=== PATIENT | male | born 2000 | race Caucasian/White ===

== ENCOUNTER 2024-02-02 19:48 | Emergency (ER) | payer OTHER, SELFPAY ==
[2024-02-02 19:48] VITALS: BP 108/69
[2024-02-02 19:51] VITALS: BP 152/86
--- NOTE | 2024-02-02 21:30 | ED.GENMED ---
History of Present Illness
General
Chief Complaint: Crisis Evaluation
Source: patient
Exam Limitations: none
Time Seen by Provider: 02/02/24 19:53
Nursing documentation reviewed up to this point in time: agreed with
History of Present Illness
History of Present Illness:
Patient presents to ED for medical evaluation after 302 petition was filed by community service officer, as patient was found sitting in front of neighbors lawn, holding knives. When approached by police, patient expressed thoughts of wanting to kill himself.
Patient admits to having used LSD this afternoon. At the time of evaluation ED, patient is alert and awake, and is without any complaints. Patient has very little recollection of what transpired prior to arrival in ED. Denies recent illness.
Denies use of any other illicit medications. Denies homicidal ideation. Denies previous history of similar symptoms.
Review of Systems
Review of Systems
Allergies reviewed?: Yes
All Other Systems: ROS reviewed and negative except as documented in HPI and ROS
Constitutional: Reports no symptoms
Respiratory: Reports no symptoms
Cardiac: Reports no symptoms
ABD/GI: Reports no symptoms; Denies nausea, vomiting or diarrhea
Musculoskeletal: Reports no symptoms
Skin: Reports no symptoms
Neurological: Reports no symptoms
Phy Exam
Physical Exam
Physical Exam:
Physical Exam
General: no apparent distress, not acutely ill. afebrile
Head: nc/at. eomi
Neck: supple. no meningeal signs.
Heart: s1/s2 regular rate and rhythm, no murmur. equal radial pulses.
Lungs: no acute respiratory distress. clear bilaterally
Abdomen: normal bowel sounds. not tender.
Neuro: alert and oriented. no focal neurological deficits
Skin: no rash
Psychiatric: well kept. interactive and cooperative
Extremities: no edema. no calf tenderness.
Course
Orders/Labs/Results
Orders:
Orders
02/02/24 21:25
Alcohol Urgent
Basic Metabolic Panel Urgent
Complete Blood Count/With Diff Urgent
Urine Drug Abuse Screen Urgent
Date Specimen was Collected: 02/02/24
Time Specimen was Collected: 21:17
Abnormal Lab Results
02/02/24
21:25
MCH 31.3 H pg
(27.0-31.0)
MCHC 37.9 H g/dL
(33.0-37.0)
RDW 11.3 L %
(11.5-14.5)
MPV 11.3 H fL
(7.4-10.4)
Abs Immat Gran (auto) 0.1 H 10^3/uL
(0-0.05)
Absolute Neuts (auto) 8.2 H 10^3/uL
(1.4-6.5)
Absolute Lymphs (auto) 0.4 L 10^3/uL
(1.2-3.4)
Immature Gran % 0.6 H %
(0-0.5)
Neutrophils % 91.6 H %
(42.2-75.2)
Lymphocytes % 4.1 L %
(20.5-51.1)
Carbon Dioxide 19 L mmol/L
(22-30)
Glucose 114 H mg/dl
(70-99)
Calcium 10.3 H mg/dl
(8.4-10.2)
U Marijuana (THC) Screen Positive H
(Negative)
02/02/24 21:25
02/02/24 21:25
Vital Signs
Initial and Last Documented VS:
Initial Vital Signs
Temp Pulse Resp BP Pulse Ox
98.2 F 65 18 108/69 96
02/02/24 19:48 02/02/24 19:48 02/02/24 19:48 02/02/24 19:48 02/02/24 19:48
Last Documented Vital Signs
Temp Pulse Resp BP Pulse Ox
97.9 F 128 20 152/86 97
02/02/24 19:51 02/02/24 19:51 02/02/24 19:51 02/02/24 19:51 02/03/24 00:23
MDM/Problems Addressed
MDM/Problems Addressed:
Patient is medically cleared and will be transitioned to inpatient psychiatric facility for further evaluation and treatment.
*Critical Care Note
Total Time (30-74mins, 75-104mins- exclusive of procedures): Not Applicable
ED Attending Note
-
Portions of this chart may have been created with voice recognition software.� Occasional wrong word or��sound alike� substitutions may have occurred due to the inherent limitations of voice recognition software.
Discharge Plan
Departure
Patient Disposition: Psych Facility
Date of Disposition: 02/02/24
Time of Disposition: 21:30
Patient Status:: 201
Condition: Fair
Discharge Problem:
Suicidal ideation
Interventions
Interventions:
*Risk Screen - Suicide Last Done: 02/02/24 19:51
*General Assessment Last Done: 02/02/24 19:51
*Neglect/Abuse Screening Last Done: 02/02/24 19:51
ED- Fall Risk Assessment Last Done: 02/03/24 00:23
*ED COVID-19 Vaccine History Last Done: 02/03/24 10:13
*Nursing Disposition Last Done: 02/03/24 10:12
ED-Psychological Assessment Last Done: 02/03/24 00:23
Discharge Date and Time
Discharge Date/Time: 02/03/24 10:13
Print Language: [place]
[2024-02-02 21:49] LABS: Amphetamines Negative (Negative); Barbiturates Negative (Negative); Benzodiazepines Negative (Negative); Buprenorphine Negative (Negative); Cocaine Negative (Negative); Marijuana Positive (Negative); Methadone Negative (Negative); Methamphetamines Negative (Negative); Opiates Negative (Negative); Phencyclidine Negative (Negative); Tricyclic Antidepressants Negative (Negative)
[2024-02-02 21:57] LABS: Blood Urea Nitrogen 12 mg/dl (9-20); Calcium 10.3 mg/dl (8.4-10.2); Carbon Dioxide 19 mmol/L (22-30); Chloride 102 mmol/L (98-107); Estimated Creatinine Clearance 90 ml/min; Glucose 114 mg/dl (70-99); Potassium 3.7 mmol/L (3.5-5.1); Sodium 140 mmol/L (135-145); eGFR > 60.00
[2024-02-02 22:03] LABS: Alcohol None Detected
[2024-02-02 22:14] LABS: % Basophils 0.6 % (0-2); % Eosinophils 0.1 % (0-6); % Immature Granulocytes 0.6 % (0-0.5); % Lymphocytes 4.1 % (20.5-51.1); % Neutrophils 91.6 % (42.2-75.2); Absolute Basophils 0.1 10^3/uL (0-0.2); Absolute Immature Granulocytes 0.1 10^3/uL (0-0.05); Absolute Lymphocytes 0.4 10^3/uL (1.2-3.4); Absolute Monocytes 0.3 10^3/uL (0.1-0.6); Absolute Neutrophils 8.2 10^3/uL (1.4-6.5); Hematocrit 46.2 % (39.0-52.0); Hemoglobin 17.5 g/dL (13.0-18.0); Mean Corp Hgb Conc. 37.9 g/dL (33.0-37.0); Mean Corpuscular Hgb 31.3 pg (27.0-31.0); Mean Corpuscular Volume 82.5 fL (80.0-94.0); Mean Platelet Volume 11.3 fL (7.4-10.4); Nucleated Red Blood Cells % 0 % (-); Platelet Count 181 10^3/uL (130-400); Red Cell Dist. Width 11.3 % (11.5-14.5)
== END 2024-02-03 10:13 ==
LOC: EMR 19:48
PROVIDERS: EMERGENCY PHYSICIAN Emergency Medicine
DX: R45.851 Suicidal ideations (principal)
CPT/HCPCS: 99285; 80048; 80306; 82077; 85025